=== PATIENT | female | born 1980 | race Caucasian/White ===

== ENCOUNTER 2021-09-08 22:04 | Inpatient (IN) | payer OTHER ==
[2021-09-08 22:15] VITALS: BMI 22.3
[2021-09-08] MEDS ORDERED: SODIUM CHLORIDE 1,000 ML IV STA (22:38)
[2021-09-08] MEDS ORDERED: ACETAMINOPHEN 500 MG TABLET (FP) PO ONE (22:38)
[2021-09-08] MEDS ORDERED: ONDANSETRON 4 MG/2 ML VIAL IVPUSH ONE (22:38)
[2021-09-08] MEDS ORDERED: ONDANSETRON 4 MG/2 ML VIAL ONE (22:51)
[2021-09-08] MEDS ORDERED: ACETAMINOPHEN 325 MG TABLET (FP) ONE (22:51)
[2021-09-08 23:34] LABS: BASO % 0.8 % (0-2.0); EOS % 0.5 % (0-4.5); HEMATOCRIT 46.8 % (32.4-45.2); HEMOGLOBIN 15.6 GM/dL (10.7-15.3); LYMPH % 11.2 % (8-40); MCH 29.9 pg (25.7-33.7); MCHC 33.4 g/dl (32.0-36.0); MEAN CELL VOLUME 89.6 fl (80-96); MEAN PLT VOLUME 9.5 fl (7.5-11.1); MONO % 10.8 % (3.8-10.2); NEUT % 76.7 % (42.8-82.8); PLATELET COUNT 243 10^3/uL (134-434); RBC 5.23 M/mm3 (3.60-5.2); RDW 13.9 % (11.6-15.6); WHITE BLOOD COUNT 11.2 K/mm3 (4.0-10.0)
[2021-09-08 23:39] LABS: EPI CELLS >36 /uL (0-25.1); HYALINE CASTS 3 /uL (0-3.1); PH,URINE 6.5 (5.0-8.0); URINE APPEARANCE CLEAR; URINE BACTERIA 1397 /uL (0-1359); URINE BILIRUBIN NEGATIVE (NEGATIVE); URINE COLOR YELLOW; URINE GLUCOSE (UA) NEGATIVE (NEGATIVE); URINE KETONE NEGATIVE (NEGATIVE); URINE LEUK ESTERASE TRACE (NEGATIVE); URINE NITRITE NEGATIVE (NEGATIVE); URINE PROTEIN TRACE (NEGATIVE); URINE RBC 188 /uL (0-23.9); URINE UROBILINOGEN 0.2 mg/dL (0.2-1.0); URINE WBC 82 /uL (0-25.8)
[2021-09-08 23:55] LABS: CALCIUM 9.5 mg/dL (8.5-10.1)
[2021-09-08 23:56] LABS: ALBUMIN 3.6 g/dl (3.4-5.0); BLOOD UREA NITROGEN 14.7 mg/dL (7-18)
[2021-09-08 23:59] LABS: CREATININE 1.3 mg/dL (0.55-1.3)
[2021-09-09] LABS: BILIRUBIN,TOTAL 0.4 mg/dL (0.2-1)
[2021-09-09] MEDS ORDERED: CEFTRIAXONE 1 GM in DEXTROSE 5%-WATER - 100 ML IVPB ONE (00:43)
[2021-09-09] MEDS ORDERED: CEFTRIAXONE 1 GM/50 ML BAG ONE (00:51)
[2021-09-09] MEDS ORDERED: ACETAMINOPHEN 325 MG TABLET (FP) PO PRN (03:09)
[2021-09-09] MEDS ORDERED: PIPERACILLIN/TAZOB 3.375 GM 3.375 GM in DEXTROSE 5%-WATER - 50 ML IVPB SCH ×2 (03:15→03:45)
[2021-09-09] MEDS ORDERED: ONDANSETRON 4 MG/2 ML VIAL IVPUSH PRN (04:10)
[2021-09-09] MEDS ORDERED: LACTATED RINGERS SOLUTION 1,000 ML/1,000 ML INFUS.BAG IV SCH (04:15)
[2021-09-09 04:23] LABS: INR 1.08 (0.83-1.09); PROTHROMBIN TIME (PATIENT) 12.6 SEC (9.7-13.0)
[2021-09-09 04:26] LABS: ACTIVATED PTT 27.5 SECONDS (25.2-36.5)
[2021-09-09 06:16] LABS: BASO % 0.9 % (0-2.0); EOS % 0.9 % (0-4.5); HEMATOCRIT 41.4 % (32.4-45.2); HEMOGLOBIN 14.2 GM/dL (10.7-15.3); LYMPH % 23.3 % (8-40); MCH 30.8 pg (25.7-33.7); MCHC 34.2 g/dl (32.0-36.0); MEAN CELL VOLUME 90.1 fl (80-96); MEAN PLT VOLUME 9.8 fl (7.5-11.1); MONO % 10.1 % (3.8-10.2); NEUT % 64.8 % (42.8-82.8); PLATELET COUNT 228 10^3/uL (134-434); RBC 4.59 M/mm3 (3.60-5.2); RDW 14.1 % (11.6-15.6); WHITE BLOOD COUNT 8.3 K/mm3 (4.0-10.0)
[2021-09-09 06:30] LABS: ALBUMIN 2.9 g/dl (3.4-5.0); CALCIUM 8.7 mg/dL (8.5-10.1)
[2021-09-09 06:31] LABS: BLOOD UREA NITROGEN 13.7 mg/dL (7-18)
[2021-09-09 06:33] LABS: CREATININE 1.1 mg/dL (0.55-1.3); MAGNESIUM 2.2 mg/dL (1.8-2.4); PHOSPHOROUS 4.1 mg/dL (2.5-4.9)
[2021-09-09 06:35] LABS: BILIRUBIN,TOTAL 0.3 mg/dL (0.2-1); TOT PROT 6.7 g/dl (6.4-8.2)
[2021-09-09 06:40] VITALS: BP 144/97; PULSE 82; TEMP 98.6
[2021-09-09] MEDS ORDERED: TAMSULOSIN HCL 0.4 MG CAP PO SCH (08:30)
[2021-09-09] MEDS ORDERED: ENOXAPARIN NA (PORCINE) 40 MG/0.4 ML DISP.SYRIN SQ SCH (10:00)
== END 2021-09-09 07:10 | disposition left against medical advice (07) | DRG 463 ==
LOC: JER 22:04 → JERBED 09-09 00:51
PROVIDERS: ATTEND Nurse Practitioner Acute Care
DX: N13.6 Pyonephrosis (principal); N83.201 Unspecified ovarian cyst, right side
CPT/HCPCS: 36415; 74176-TC; 76830-TC; 80053; 81003; 83735; 84100; 84703; 85025; 85610; 85730; 87086; 93005; 93010; 99285-25; C9803; U0003; U0005

== ENCOUNTER 2021-09-09 16:55 | Emergency (ER) | payer OTHER ==
[2021-09-09 17:04] VITALS: BP 141/96; PULSE 96; TEMP 97.2; BMI 22.3
[2021-09-09] MEDS ORDERED: KETOROLAC TROMETHAMINE 30 MG/1 ML VIAL IVPUSH ONE (19:31)
[2021-09-09] MEDS ORDERED: KETOROLAC TROMETHAMINE 60 MG/2 ML VIAL IM ONE (20:08)
[2021-09-09] MEDS ORDERED: KETOROLAC TROMETHAMINE 60 MG/2 ML VIAL ONE (20:29)
== END 2021-09-09 20:58 | disposition home or self-care (01) ==
LOC: JER 16:55
PROC: 3E0333Z Introduction of Anti-inflammatory into Peripheral Vein, Percutaneous Approach (ICD-10-PCS; principal; 2021-09-09)
PROC: 3E0233Z Introduction of Anti-inflammatory into Muscle, Percutaneous Approach (ICD-10-PCS; 2021-09-09)
DX: N20.0 Calculus of kidney (principal); N83.209 Unspecified ovarian cyst, unspecified side
CPT/HCPCS: 99284-25

== ENCOUNTER 2023-03-01 00:26 | Emergency (ER) | payer OTHER ==
[2023-03-01 00:31] VITALS: BP 159/100; PULSE 86; RESP 17; TEMP 98.4; BMI 24.9
[2023-03-01] MEDS ORDERED: ACETAMINOPHEN 1000 MG/100 ML BAG IVPB ONE (01:23)
[2023-03-01] MEDS ORDERED: ACETAMINOPHEN INJECTION 100 ML IVPB ONE (01:38)
[2023-03-01 01:39] LABS: BASO % 0.7 % (0-2.0); EOS % 1.3 % (0-4.5); HEMATOCRIT 43.2 % (32.4-45.2); HEMOGLOBIN 14.6 GM/dL (10.7-15.3); LYMPH % 22.4 % (8-40); MCH 29.5 pg (25.7-33.7); MCHC 33.7 g/dl (32.0-36.0); MEAN CELL VOLUME 87.6 fl (80-96); MEAN PLT VOLUME 9.3 fl (7.5-11.1); MONO % 7.8 % (3.8-10.2); NEUT % 67.8 % (42.8-82.8); PLATELET COUNT 284 10^3/uL (134-434); RBC 4.94 M/mm3 (3.60-5.2); RDW 13.4 % (11.6-15.6); WHITE BLOOD COUNT 9.2 K/mm3 (4.0-10.0)
[2023-03-01 01:48] LABS: PH,URINE 6.5 (5.0-8.0); URINE APPEARANCE CLEAR; URINE BILIRUBIN NEGATIVE (NEGATIVE); URINE COLOR YELLOW; URINE GLUCOSE (UA) NEGATIVE (NEGATIVE); URINE KETONE NEGATIVE (NEGATIVE); URINE LEUK ESTERASE NEGATIVE (NEGATIVE); URINE NITRITE NEGATIVE (NEGATIVE); URINE PROTEIN NEGATIVE (NEGATIVE); URINE UROBILINOGEN 0.2 mg/dL (0.2-1.0)
[2023-03-01 01:53] LABS: POTASSIUM 4.2 mmol/L (3.5-5.1)
[2023-03-01 01:54] LABS: CALCIUM 9.2 mg/dL (8.5-10.1)
[2023-03-01 01:55] LABS: ALBUMIN 3.3 g/dl (3.4-5.0); BLOOD UREA NITROGEN 6.6 mg/dL (7-18)
[2023-03-01 01:58] LABS: CREATININE 0.6 mg/dL (0.55-1.3)
[2023-03-01 01:59] LABS: BILIRUBIN,TOTAL 0.4 mg/dL (0.2-1); TOT PROT 7.5 g/dl (6.4-8.2)
[2023-03-01] MEDS ORDERED: AMOX TR/POT CLAV 875MG/125MG TABLETS (FP) PO ONE (04:13)
[2023-03-01] MEDS ORDERED: AMOX TR/POT CLAV 875MG/125MG TABLETS (FP) ONE (04:18)
== END 2023-03-01 04:38 | disposition home or self-care (01) ==
LOC: JER 00:26
PROC: 3E033NZ Introduction of Analgesics, Hypnotics, Sedatives into Peripheral Vein, Percutaneous Approach (ICD-10-PCS; principal; 2023-03-01)
DX: R10.32 Left lower quadrant pain (principal); R19.7 Diarrhea, unspecified; K57.32 Diverticulitis of large intestine without perforation or abscess without bleeding
CPT/HCPCS: 36415; 74177-TC; 80053; 81003; 83690; 84703; 85025; 87086; 96374; 99285-25

== ENCOUNTER 2024-01-26 22:10 | Emergency (ER) | payer OTHER ==
[2024-01-26 22:31] VITALS: BMI 25.7
[2024-01-27 00:01] VITALS: BP 172/108; PULSE 75; RESP 16; TEMP 98.6
== END 2024-01-27 00:08 | disposition home or self-care (01) ==
LOC: JER 22:10
DX: R05.9 Cough, unspecified (principal); T78.40XA Allergy, unspecified, initial encounter; Z20.822 Contact with and (suspected) exposure to COVID-19
CPT/HCPCS: 0241U-QW; 71046-TC-FY; 84703; 99284-25